=== PATIENT | female | born 1965 | race American Indian/Alaskan Native ===

== ENCOUNTER 2017-12-19 10:31 | Emergency (ER) | payer MEDICARE ==
[2017-12-19] MEDS ORDERED: KEPPRA 1,000 MG in D5W 100 ML IV ONE (10:50)
[2017-12-19] MEDS ORDERED: KEPPRA 1,000 MG/NS 0.75% 100ML 1,000 MG/100 ML BAG IV ONE ×2 (10:50→12:00)
--- NOTE | 2017-12-19 11:43 | Emergency Department Report ---
ED Seizure HPI - General Chief Complaint: Seizure Stated Complaint: SEIZURE Time Seen by Provider: 12/19/17 11:42 Source: EMS Mode of arrival: Stretcher Limitations: Physical Limitation - History of Present Illness Initial Comments: Patient with no previous old chart at this facility here with family members who state they've been caring for her for the last 6 years her baseline is that she does get out of bed and have normal daily functioning however she's had some confusion ever since she had a "blood clot on the brain" 6 years ago. She was living independently prior to that. She is here for evaluation of what is witneess t/c seizure 2 today with a previous history of seizure disorder. They think the seizures did start after a blood clot on the brain 6 yrs ago. She is supposedly on Keppra and losartan. She does have history of hypertension and seizures. She is here for 2 witnessed tonic-clonic seizures today. They deny headache denies stiff neck. Denied fever they deny change in baseline mental status they do state that they think she has been compliant with the Keppra she does see a doctor here in town is here for evaluation of witnessed seizures with history of same family states back to normal baseline she is awake and alert and verbal eyes open good airway. Family denies trauma patient has no complaints no headache no neck pain or stiffness no head injury no back pain no chest pain no abdominal pain no other extremity complaints MD Complaint: seizure, possible seizure -: Gradual Description of Episode: tonic-clonic movement Seizure History: known seizure disorder Associated Symptoms: denies other symptoms, other (no trauma). denies: chest pain, confusion, cough, diaphoresis, fever/chills, loss of appetite, malaise, rash, shortness of breath, syncope, weakness, tongue injury, shoulder dislocation - Related Data Home Medications Medication Instructions Recorded Confirmed Last Taken Losartan/Hydrochlorothiazide 1 each PO QDAY 12/19/17 12/19/17 Unknown [Losartan-Hctz 50-12.5 mg Tab] Previous Rx's Medication Instructions Recorded Last Taken Type levETIRAcetam [Keppra] 500 mg PO BID #15 tablet 12/19/17 Unknown Rx Allergies Allergy/AdvReac Type Severity Reaction Status Date / Time No Known Allergies Allergy Unverified 12/19/17 11:12 ED Review of Systems ROS: Stated complaint: SEIZURE Other details as noted in HPI Comment: All other systems reviewed and negative Constitutional: denies: diaphoresis, fever, malaise Eyes: denies: eye discharge, vision change ENT: denies: hearing loss, epistaxis Respiratory: denies: shortness of breath, SOB with exertion, SOB at rest, stridor Gastrointestinal: denies: abdominal pain, nausea, vomiting, diarrhea, constipation, hematemesis, melena, hematochezia Neurological: as per HPI. denies: headache, weakness, numbness, paresthesias, confusion, abnormal gait, vertigo (stiff neck no headache no focal neural complaints no trauma patient is at baseline mental status) ED Past Medical Hx - Past Medical History Additional medical history: seizure - Social History Smoking Status: Unknown if ever smoked - Medications Home Medications: Home Medications Medication Instructions Recorded Confirmed Last Taken Type Losartan/Hydrochlorothiazide 1 each PO QDAY 12/19/17 12/19/17 Unknown History [Losartan-Hctz 50-12.5 mg Tab] levETIRAcetam [Keppra] 500 mg PO BID #15 tablet 12/19/17 Unknown Rx ED Physical Exam - General Limitations: Physical Limitation General appearance: alert, in no apparent distress, anxious - Head Head exam: Present: atraumatic, normocephalic - Eye Eye exam: Present: PERRL, EOMI - ENT ENT exam: Present: normal exam, normal orophraynx - Neck Neck exam: Present: normal inspection. Absent: tenderness, meningismus - Respiratory Respiratory exam: Present: normal lung sounds bilaterally. Absent: respiratory distress, wheezes, rales, rhonchi, stridor, chest wall tenderness, accessory muscle use, decreased breath sounds, prolonged expiratory - Cardiovascular Cardiovascular Exam: Present: regular rate, normal rhythm - GI/Abdominal GI/Abdominal exam: Present: soft. Absent: distended, tenderness, guarding, rebound, rigid, mass, pulsatile mass - Extremities Exam Extremities exam: Present: normal inspection, normal capillary refill. Absent: pedal edema, joint swelling, calf tenderness - Back Exam Back exam: Present: normal inspection. Absent: CVA tenderness (L), muscle spasm , paraspinal tenderness, vertebral tenderness - Neurological Exam Neurological exam: Present: alert, CN II-XII intact. Absent: motor sensory deficit - Psychiatric Psychiatric exam: Present: normal affect, anxious - Skin Skin exam: Present: warm ED Course Vital Signs 12/19/17 12/19/17 11:16 11:17 Temperature 98.7 F Pulse Rate 98 H Respiratory 19 19 Rate Blood Pressure 128/77 [Left] O2 Sat by Pulse 100 100 Oximetry ED Medical Decision Making - Lab Data Result diagrams: 12/19/17 11:22 12/19/17 11:22 - Radiology Data Radiology results: report reviewed - Medical Decision Making Laboratory studies Keppra level is none available at this time patient was given a load by the nurse in the ED no further seizure activity was appreciated , laboratory studies were essentially unremarkable with a were not emergent in nature this does appear to be a seizure with history of seizure disorder with no status epilepticus noted she is stable for outpatient follow-up with her neurologist adjust meds, or medication possible noncompliance she had no trauma she is otherwise at her baseline and is stable for outpatient follow-up Critical care attestation.: If time is entered above; I have spent that time in minutes in the direct care of this critically ill patient, excluding procedure time. ED Disposition Clinical Impression: Seizure disorder Disposition: DC-01 TO HOME OR SELFCARE Is pt being admited?: No Condition: Stable Instructions: Recurrent Seizures Adult (ED) Additional Instructions: Current medicines see your doctor or the doctor listed return immediately if new or alarming symptoms or call 911 Prescriptions: levETIRAcetam [Keppra] 500 mg PO BID #15 tablet Referrals: PRIMARY CARE [Primary Care Provider] - 3-5 Days Time of Disposition: 13:33
[2017-12-19 11:44] LABS: Basophils % (Auto) 0.1 % (0.0-1.8); Eosinophils % (Auto) 0.1 % (0.0-4.3); Hematocrit 38.7 % (30.3-42.9); Lymphocytes # (Auto) 0.8 K/mm3 (1.2-5.4); Lymphocytes % (Auto) 6.8 % (13.4-35.0); Mean Corpuscular HGB Conc 34 % (30-34); Mean Corpuscular Hemoglobin 31 pg (28-32); Mean Corpuscular Volume 91 fl (79-97); Monocytes # (Auto) 0.4 K/mm3 (0.0-0.8); Monocytes % (Auto) 3.3 % (0.0-7.3); Platelet Count 278 K/mm3 (140-440); Red Blood Count 4.24 M/mm3 (3.65-5.03); Red Cell Distribution Width 12.4 % (13.2-15.2)
[2017-12-19 11:52] LABS: Alanine Aminotransferase 11 units/L (7-56); BUN/Creatinine Ratio 18; Blood Urea Nitrogen 14 mg/dL (7-17); Calcium 9.4 mg/dL (8.4-10.2); Hemolysis Index 7
--- NOTE | 2017-12-19 12:00 | Cat Scan Report ---
CT HEAD WITHOUT CONTRAST INDICATION: Seizure. COMPARISON: None similar at this institution. FINDINGS: Noncontrast head CT demonstrates left frontoparietal MCA territory encephalomalacia with largest confluent left parietal measurement of 3.7 x 2.7 cm, axial series 2, image 40. Overlying left craniotomy changes also noted as also mild ex-vacuo dilatation of the left lateral ventricle. Minimal, benign right basal ganglia calcification. No definite acute infarct, hemorrhage, mass effect or midline shift. No abnormal extra axial fluid collections. Normal posterior fossa with preserved basilar cisterns. Normal image eye globes. Leftward nasal septal deviation. Mild to moderate bilateral ethmoid, bilateral maxillary and frontal sinus mucosal thickening noted. Minimal right sphenoid sinus mucosal thickening anteriorly also possible. Clear left sphenoid sinus and bilateral mastoid air cells. Extensive atherosclerotic ICA calcifications. Normal scalp. Few missing teeth. CONCLUSION: No acute intracranial CT abnormality with left frontoparietal encephalomalacia with evidence of left craniotomy, mild sinusitis and age-appropriate atrophy, as described. Please correlate. Thank you for the opportunity to participate in this patient's care.
[2017-12-19 13:40] VITALS: BP 115/75
== END 2017-12-19 13:41 | disposition home or self-care (01) ==
LOC: ED 10:31
DX: G40.909 Epilepsy, unspecified, not intractable, without status epilepticus (principal)
CPT/HCPCS: 36415; 70450; 80053; 80177; 83735; 85025; 96365; 99284; G0480; J1953; 80320